=== PATIENT | male | born 1950 | race Caucasian/White ===

== ENCOUNTER 2022-06-30 15:25 | Inpatient (IN) | payer MEDICARE, OTHER ==
[~2022-06-30] VITALS: Ht 172.7 cm; Wt 63.5 kg
--- NOTE | 2022-06-30 15:40 | NUR ---
1) Arrived by ambulance approx 1530pm, sob, and labored breathing. 2) Patient c/o of difficulty breathing during the night - felt like soemthing choking him. 3) Patient is on 15 liters oxygen vis rebreathing bag and saturating in the 92%. 4) Changed into a gown, made comfortable, skin intact. 5) Patient complaining of pain in the chest area - due to coughing. 6) Patient has a L 20G AC - Saline locked. 7) Malvin MD and ordered: (i) CT Scan (ii) C Xray (iii) Labs.
[2022-06-30] MEDS ORDERED: ACETAMINOPHEN 325 MG TABLET PO ONE (15:45)
[2022-06-30 15:56] LABS: HEMATOCRIT 38.5 % (36.7-47.1); MEAN CORPUSCULAR HEMOGLOBIN 26.2 uug (23.8-33.4); MEAN CORPUSCULAR VOLUME 79.4 fL (73.0-96.2); PLATELET COUNT (AUTO) 498 K/uL (152-348)
--- NOTE | 2022-06-30 15:57 | NUR ---
ANDRE obtained and provided to IRIS HERNANDEZ
--- NOTE | 2022-06-30 16:02 | NUR ---
Tylenol administered as prescribed and awaiting effect
[2022-06-30 16:12] LABS: BILIRUBIN,TOTAL 0.3 mg/dL (0.2-1.0); CREATININE 1.1 mg/dL (0.6-1.3); POTASSIUM 4.3 mmol/L (3.5-5.1)
[2022-06-30] MEDS ORDERED: BISA10SU61 RC (17:02)
[2022-06-30] MEDS ORDERED: HEPA500034 SQ (17:02)
[2022-06-30] MEDS ORDERED: CALC-494 PO (17:02)
[2022-06-30] MEDS ORDERED: DOCU100C36 PO (17:02)
[2022-06-30] MEDS ORDERED: LOPE2CAP PO (17:02)
[2022-06-30] MEDS ORDERED: LIDO30AD10 TP (17:02)
[2022-06-30] MEDS ORDERED: IPRA0.2S48 NEB (17:02)
[2022-06-30] MEDS ORDERED: FERR325T28 PO (17:02)
[2022-06-30] MEDS ORDERED: LORA-258 PO (17:02)
[2022-06-30] MEDS ORDERED: ACET-2154 PO (17:02)
[2022-06-30] MEDS ORDERED: OXYC-128 PO (17:03)
[2022-06-30] MEDS ORDERED: TAMS-3 PO (17:03)
[2022-06-30] MEDS ORDERED: POLY17PO4 PO (17:03)
[2022-06-30] MEDS ORDERED: MULT-213 PO (17:03)
[2022-06-30] MEDS ORDERED: ONDA4TAB5 PO (17:03)
[2022-06-30] MEDS ORDERED: MELA3TAB41 PO (17:03)
[2022-06-30] MEDS ORDERED: TRAM50TA2 PO (17:03)
[2022-06-30] MEDS ORDERED: SIME80TA15 PO (17:03)
[2022-06-30] MEDS ORDERED: SENN-261 PO (17:03)
[2022-06-30] MEDS ORDERED: MIRT-93 PO (17:03)
[2022-06-30] MEDS ORDERED: IPRATROPIUM BROMIDE 0.5 MG/2.5 ML NEBU NEB ONE (17:30)
[2022-06-30] MEDS ORDERED: BISACODYL 10 MG SUPP.RECT RC PRN (18:15)
[2022-06-30] MEDS ORDERED: SIMETHICONE 80 MG TAB.CHEW PO PRN (18:15)
[2022-06-30] MEDS ORDERED: IPRATROPIUM BROMIDE 0.5 MG/2.5 ML NEBU NEB PRN (18:15)
[2022-06-30] MEDS ORDERED: ACETAMINOPHEN 325 MG TABLET PO PRN (18:15)
[2022-06-30] MEDS ORDERED: levoFLOXacin 500 MG/D5W 500 MG in PREMIXED 1 EACH IV SCH (18:30)
[2022-06-30] MEDS ORDERED: REMEDY ESSENTIAL ZINC PASTE 113 GM TP PRN (18:30)
[2022-06-30] MEDS ORDERED: MAGNESIUM HYDROXIDE 30 ML LIQUID UDC PO PRN (18:30)
[2022-06-30] MEDS ORDERED: ONDANSETRON 4 MG/2 ML VIAL IV PRN (18:30)
[2022-06-30] MEDS ORDERED: IOHEXOL 350 100 ML INFUS..BTL ONE ×2 (18:35→19:08)
[2022-06-30] MEDS ORDERED: CALCIUM CARBONATE 500 MG TAB.CHEW PO PRN (18:45)
[2022-06-30] MEDS: MELATONIN 3 MG TABLET PO SCH (21:00)
[2022-06-30] MEDS: SENNOSIDES 1 TABLET PO SCH (21:00)
[2022-06-30] MEDS ORDERED: ALBUTEROL SULFATE 2.5 MG/3 ML NEBU NEB PRN (21:15)
--- NOTE | 2022-07-01 00:05 | NUR ---
--PT HAS DISPO FOR ADMIT TO MED-SURG. PT IS AWARE. VS HAVE BEEN STABLE. RESPS REG/UNLAB. PT IS ON NRB-FMK AT 15L. PT MIKE WELL WITH POX OF 98-99%. RRTX GUMARO HAS BEEN AT BEDSIDE. PT SEEMS TO BE A/OX3. PT IS WAITING FOR AVAIL. BED TO THE [facility]. PT ENDORSED TO [facility] IN STABLE COND. IGNACIO VILLAVICENCIO
[2022-07-01 03:00] VITALS: BP 109/65
[2022-07-01] MEDS ORDERED: SWABABLE VALVE TRANSFER SET EA MC ONE (03:14)
[2022-07-01] MEDS ORDERED: IV NORMAL SALINE 250 ML IV ONE (03:14)
--- NOTE | 2022-07-01 04:15 | NUR ---
Pt. transfered to TELE room 325 by Ted VILLAVICENCIO , under care of Bernarda OCHOA
--- NOTE | 2022-07-01 06:00 | NUR ---
[id number] PT NEW ADMIT FROM ER. REPORT GIVEN FROM [facility]. PT IZAIAH/OX3. VS ARE STABLE. AFEBRILE. PT ARRIVED FROM ER VIA [facility]. PT HAS O2 VIA NRB-FMK@15L. POX IS 100%. PT DESATS WHEN OFF O2. PT HAS SOB WITH EXERTION. IVS I/P VIA RIGHT ARM X2-22G VIA R.AC AND 22G VIA R.WRIST-BOTH HL. PT CAME FROM [facility]. GEN. COND HAS BEEN STABLE/GUARDED. PT ENDORSED TO [facility] TALAVER[facility]. IGNACIO VILLAVICENCIO
[2022-07-01] MEDS: methylPREDNISolone SOD SUCC 40 MG/ML VIAL IV SCH ×3 (06:43→21:00)
[2022-07-01 07:12] LABS: HEMATOCRIT 36.1 % (36.7-47.1); MEAN CORPUSCULAR VOLUME 79.3 fL (73.0-96.2); PLATELET COUNT (AUTO) 448 K/uL (152-348)
[2022-07-01 07:13] VITALS: BP 97/60
[2022-07-01 07:19] LABS: MAGNESIUM 2.4 mg/dL (1.8-2.4); PHOSPHOROUS 4.3 mg/dL (2.5-4.9); POTASSIUM 4.1 mmol/L (3.5-5.1)
[2022-07-01] MEDS: MULTIVIT, IRON, MIN NO. 8, FA TABLET PO SCH (08:19)
[2022-07-01] MEDS: LIDOCAINE 5% PATCH TD SCH (08:19)
[2022-07-01] MEDS: MIRALAX 17 GM POWD.PACK PO SCH (08:19)
[2022-07-01] MEDS: TAMSULOSIN HCL 0.4 MG CAP.SR.24H PO SCH (08:19)
[2022-07-01] MEDS: DOCUSATE SODIUM 100 MG CAPSULE PO SCH ×2 (08:19→16:10)
[2022-07-01] MEDS ORDERED: Medication Not On Formulary EA (Multivitamins W-Minerals (Multivitamin With Minerals) 1 PO SCH (09:00)
[2022-07-01] MEDS: levoFLOXacin 500 MG/D5W 500 MG in PREMIXED 1 EACH IV SCH (09:02)
[2022-07-01 10:19] LABS: SITE, VBG RIGHT RADIAL
[2022-07-01 11:41] VITALS: BP 90/43
[2022-07-01] MEDS: IPRATROPIUM BROMIDE 0.5 MG/2.5 ML NEBU NEB SCH (13:11)
[2022-07-01] MEDS: ALBUTEROL SULFATE 2.5 MG/3 ML NEBU NEB SCH (13:11)
[2022-07-01] MEDS: PIPERACILLIN SODIUM/TAZOBACTAM 3.375 G in IV DEXTROSE 5% 100 ML IV SCH ×2 (13:44→21:32)
[2022-07-01] MEDS ORDERED: PIPERACILLIN SODIUM/TAZOBACTAM 3.375 G in IV DEXTROSE 5% 50 ML IV SCH (14:00)
[2022-07-01 16:31] VITALS: BP 97/51
[2022-07-01] MEDS: HEPARIN SODIUM,PORCINE 5,000 UNITS/ML VIAL SQ SCH (17:15)
[2022-07-01] MEDS: FERROUS SULFATE 325 MG TABEC PO SCH (17:15)
[2022-07-01 20:00] VITALS: BP 103/46
[2022-07-01] MEDS: MELATONIN 3 MG TABLET PO SCH (20:24)
[2022-07-01] MEDS: SENNOSIDES 1 TABLET PO SCH (20:24)
[2022-07-01] MEDS: MIRTAZAPINE 15 MG TABLET PO SCH (20:24)
[2022-07-01] MEDS: OXYCODONE/APAP 5-325 MG TABLET PO PRN (20:36)
[2022-07-02 00:30] VITALS: BP 92/51
[2022-07-02] MEDS: ALBUTEROL SULFATE 2.5 MG/3 ML NEBU NEB SCH ×4 (03:17→19:58)
[2022-07-02] MEDS: IPRATROPIUM BROMIDE 0.5 MG/2.5 ML NEBU NEB SCH ×4 (03:17→19:58)
[2022-07-02 04:00] VITALS: BP 90/47
[2022-07-02] MEDS: PIPERACILLIN SODIUM/TAZOBACTAM 3.375 G in IV DEXTROSE 5% 100 ML IV SCH ×3 (05:32→21:39)
[2022-07-02] MEDS: methylPREDNISolone SOD SUCC 40 MG/ML VIAL IV SCH ×2 (05:32→21:39)
[2022-07-02 06:32] LABS: HEMATOCRIT 36.2 % (36.7-47.1); MEAN CORPUSCULAR HEMOGLOBIN 25.6 uug (23.8-33.4); MEAN CORPUSCULAR VOLUME 79.7 fL (73.0-96.2); PLATELET COUNT (AUTO) 454 K/uL (152-348)
[2022-07-02 06:40] LABS: CREATININE 1.2 mg/dL (0.6-1.3); MAGNESIUM 2.3 mg/dL (1.8-2.4); PHOSPHOROUS 5.9 mg/dL (2.5-4.9); POTASSIUM 4.8 mmol/L (3.5-5.1)
[2022-07-02] MEDS: FERROUS SULFATE 325 MG TABEC PO SCH ×2 (08:02→16:05)
[2022-07-02] MEDS: MULTIVIT, IRON, MIN NO. 8, FA TABLET PO SCH (08:02)
[2022-07-02] MEDS: TAMSULOSIN HCL 0.4 MG CAP.SR.24H PO SCH (08:02)
[2022-07-02] MEDS: DOCUSATE SODIUM 100 MG CAPSULE PO SCH ×2 (08:02→16:05)
[2022-07-02] MEDS: HEPARIN SODIUM,PORCINE 5,000 UNITS/ML VIAL SQ SCH ×2 (08:03→16:05)
[2022-07-02] MEDS: LIDOCAINE 5% PATCH TD SCH (08:03)
[2022-07-02] MEDS: levoFLOXacin 500 MG/D5W 500 MG in PREMIXED 1 EACH IV SCH (08:04)
[2022-07-02] MEDS: MIRALAX 17 GM POWD.PACK PO SCH (08:21)
[2022-07-02] MEDS: ACETAMINOPHEN 325 MG TABLET PO PRN ×2 (09:59→21:35)
[2022-07-02 11:36] VITALS: BP 93/48
[2022-07-02 16:08] VITALS: BP 92/41
[2022-07-02 20:30] VITALS: BP 91/45
[2022-07-02] MEDS: MIRTAZAPINE 15 MG TABLET PO SCH (21:35)
[2022-07-02] MEDS: SENNOSIDES 1 TABLET PO SCH (21:35)
[2022-07-02] MEDS: MELATONIN 3 MG TABLET PO SCH (21:35)
[2022-07-03 00:30] VITALS: BP 100/51
[2022-07-03 04:50] VITALS: BP 92/49
[2022-07-03] MEDS: PIPERACILLIN SODIUM/TAZOBACTAM 3.375 G in IV DEXTROSE 5% 100 ML IV SCH ×3 (05:20→22:05)
[2022-07-03] MEDS: IPRATROPIUM BROMIDE 0.5 MG/2.5 ML NEBU NEB SCH ×3 (07:23→19:27)
[2022-07-03] MEDS: ALBUTEROL SULFATE 2.5 MG/3 ML NEBU NEB SCH ×3 (07:23→19:27)
[2022-07-03] MEDS: FERROUS SULFATE 325 MG TABEC PO SCH ×2 (08:04→16:22)
[2022-07-03] MEDS: MULTIVIT, IRON, MIN NO. 8, FA TABLET PO SCH (08:04)
[2022-07-03] MEDS: TAMSULOSIN HCL 0.4 MG CAP.SR.24H PO SCH (08:04)
[2022-07-03] MEDS: DOCUSATE SODIUM 100 MG CAPSULE PO SCH ×2 (08:05→16:22)
[2022-07-03] MEDS: MIRALAX 17 GM POWD.PACK PO SCH (08:05)
[2022-07-03] MEDS: methylPREDNISolone SOD SUCC 40 MG/ML VIAL IV SCH (08:09)
[2022-07-03] MEDS: levoFLOXacin 500 MG/D5W 500 MG in PREMIXED 1 EACH IV SCH (08:09)
[2022-07-03] MEDS: LIDOCAINE 5% PATCH TD SCH (08:16)
[2022-07-03] MEDS: HEPARIN SODIUM,PORCINE 5,000 UNITS/ML VIAL SQ SCH ×2 (08:16→16:23)
[2022-07-03 12:00] VITALS: BP 91/55
[2022-07-03 16:23] VITALS: BP 92/47
[2022-07-03 20:35] VITALS: BP 96/48
[2022-07-03] MEDS: MIRTAZAPINE 15 MG TABLET PO SCH (21:15)
[2022-07-03] MEDS: SENNOSIDES 1 TABLET PO SCH (21:15)
[2022-07-03] MEDS: MELATONIN 3 MG TABLET PO SCH (21:15)
[2022-07-04 00:30] VITALS: BP 93/52
[2022-07-04 04:10] VITALS: BP 92/54
[2022-07-04] MEDS: PIPERACILLIN SODIUM/TAZOBACTAM 3.375 G in IV DEXTROSE 5% 100 ML IV SCH ×3 (06:14→21:42)
[2022-07-04] MEDS: IPRATROPIUM BROMIDE 0.5 MG/2.5 ML NEBU NEB SCH ×3 (07:18→20:03)
[2022-07-04] MEDS: ALBUTEROL SULFATE 2.5 MG/3 ML NEBU NEB SCH ×3 (07:18→20:03)
--- NOTE | 2022-07-04 07:40 | NUR ---
Patient slept well, easy to arouse alert and oriented x 3. Denies chest pain, no noted acute distress. Sinus rhythm on tele. DUNIA midline intact and patent. Needs assessed and attended to. Call light within easy reach.
[2022-07-04] MEDS: DOCUSATE SODIUM 100 MG CAPSULE PO SCH ×2 (08:00→16:14)
[2022-07-04] MEDS: LIDOCAINE 5% PATCH TD SCH (08:00)
[2022-07-04] MEDS: MIRALAX 17 GM POWD.PACK PO SCH (08:00)
[2022-07-04] MEDS: HEPARIN SODIUM,PORCINE 5,000 UNITS/ML VIAL SQ SCH ×2 (08:01→16:15)
[2022-07-04] MEDS: FERROUS SULFATE 325 MG TABEC PO SCH ×2 (08:01→16:14)
[2022-07-04] MEDS: MULTIVIT, IRON, MIN NO. 8, FA TABLET PO SCH (08:01)
[2022-07-04] MEDS: TAMSULOSIN HCL 0.4 MG CAP.SR.24H PO SCH (08:01)
[2022-07-04 08:04] LABS: POTASSIUM 3.9 mmol/L (3.5-5.1)
[2022-07-04 08:12] LABS: HEMATOCRIT 36.3 % (36.7-47.1); MEAN CORPUSCULAR HEMOGLOBIN 25.5 uug (23.8-33.4); MEAN CORPUSCULAR VOLUME 79.3 fL (73.0-96.2); PLATELET COUNT (AUTO) 466 K/uL (152-348)
[2022-07-04] MEDS: methylPREDNISolone SOD SUCC 40 MG/ML VIAL IV SCH (08:37)
[2022-07-04] MEDS ORDERED: levoFLOXacin 500 MG TABLET PO SCH (09:00)
[2022-07-04 11:36] VITALS: BP 96/59
[2022-07-04] MEDS: OXYCODONE/APAP 5-325 MG TABLET PO PRN (14:32)
[2022-07-04] MEDS: GLUCERNA SHAKE 237 ML CAN PO SCH (16:15)
[2022-07-04 16:44] VITALS: BP 90/47
[2022-07-04 20:33] VITALS: BP 96/51
[2022-07-04] MEDS: SENNOSIDES 1 TABLET PO SCH (20:54)
[2022-07-04] MEDS: MIRTAZAPINE 15 MG TABLET PO SCH (20:54)
[2022-07-04] MEDS: MELATONIN 3 MG TABLET PO SCH (20:54)
[2022-07-05] MEDS: OXYCODONE/APAP 5-325 MG TABLET PO PRN ×2 (02:23→20:09)
[2022-07-05] MEDS: PIPERACILLIN SODIUM/TAZOBACTAM 3.375 G in IV DEXTROSE 5% 100 ML IV SCH ×2 (05:58→13:40)
[2022-07-05] MEDS: IPRATROPIUM BROMIDE 0.5 MG/2.5 ML NEBU NEB SCH ×3 (07:32→20:07)
[2022-07-05] MEDS: ALBUTEROL SULFATE 2.5 MG/3 ML NEBU NEB SCH ×3 (07:32→20:07)
[2022-07-05] MEDS: MIRALAX 17 GM POWD.PACK PO SCH (08:14)
[2022-07-05] MEDS: FERROUS SULFATE 325 MG TABEC PO SCH ×2 (08:14→17:11)
[2022-07-05] MEDS: MULTIVIT, IRON, MIN NO. 8, FA TABLET PO SCH (08:14)
[2022-07-05] MEDS: TAMSULOSIN HCL 0.4 MG CAP.SR.24H PO SCH (08:14)
[2022-07-05] MEDS: DOCUSATE SODIUM 100 MG CAPSULE PO SCH ×2 (08:14→17:11)
[2022-07-05] MEDS: HEPARIN SODIUM,PORCINE 5,000 UNITS/ML VIAL SQ SCH ×2 (08:14→17:12)
[2022-07-05] MEDS: LIDOCAINE 5% PATCH TD SCH (08:14)
[2022-07-05] MEDS: GLUCERNA SHAKE 237 ML CAN PO SCH ×2 (08:15→17:12)
[2022-07-05] MEDS: methylPREDNISolone SOD SUCC 40 MG/ML VIAL IV SCH (08:20)
[2022-07-05 11:44] VITALS: BP 91/51
[2022-07-05] MEDS ORDERED: IPRA0.2S6 NEB (12:56)
[2022-07-05] MEDS ORDERED: Multivit, Iron, Min No. 8, Fa PO (12:56)
[2022-07-05] MEDS ORDERED: ALBU2.5V7 NEB ×2 (12:56)
[2022-07-05] MEDS ORDERED: NUT.237L36 PO (12:56)
[2022-07-05] MEDS ORDERED: AMOX-430 PO (12:56)
[2022-07-05] MEDS ORDERED: PRED20TA PO (13:52)
[2022-07-05 16:25] VITALS: BP 92/47
--- NOTE | 2022-07-05 19:35 | NUR ---
Received patient laying in bed comfortably. AAOx3-4. [place] still in place and stays in place to discharge location. Midline was dc'd. Is being discharged to [facility]. [facility] plan to come by [facility]. Discharge paperwork has been completed and patient is all clean and ready for discharge. Patient is aware of discharge and contact is currently in the room also aware. Will follow up on when [facility] arrives. Safety and comfort measures enforced.
--- NOTE | 2022-07-05 20:12 | NUR ---
Gonsalo, from [facility] received report for patient at this time.
--- NOTE | 2022-07-05 20:30 | NUR ---
Patient was picked up by [facility] by tadeo is stable condition. Belongings taken with patient and daughter in law.
== END 2022-07-05 20:30 | disposition hospice, inpatient (51) | DRG 189 ==
LOC: ER 15:25 → TELE3 18:12 → MEDSURG3 07-04 12:10
PROVIDERS: ADMIT Nurse Practitioner Acute Care; ATTEND Nurse Practitioner Acute Care
PROC: 05H633Z Insertion of Infusion Device into Left Subclavian Vein, Percutaneous Approach (ICD-10-PCS; principal; 2022-07-01)
PROC: B547ZZA Ultrasonography of Left Subclavian Vein, Guidance (ICD-10-PCS; 2022-07-01)
DX: J96.21 Acute and chronic respiratory failure with hypoxia (principal); J44.1 Chronic obstructive pulmonary disease with (acute) exacerbation; C79.51 Secondary malignant neoplasm of bone; D64.9 Anemia, unspecified; D72.829 Elevated white blood cell count, unspecified; E78.5 Hyperlipidemia, unspecified; R13.10 Dysphagia, unspecified; Z79.899 Other long term (current) drug therapy; Z85.118 Personal history of other malignant neoplasm of bronchus and lung; Z87.891 Personal history of nicotine dependence; N40.0 Benign prostatic hyperplasia without lower urinary tract symptoms; K59.00 Constipation, unspecified; J38.00 Paralysis of vocal cords and larynx, unspecified; F41.9 Anxiety disorder, unspecified
CPT/HCPCS: 36415; 36600; 71045; 71275; 82803; 83735; 84100; 84484; 85025; 93005; 94640; 94664; A4663; A6209; G0378; J1644; J1956; J2543; J2920; J3590; Q9967